=== PATIENT | male | born 2005 | race African-American/Black ===

== ENCOUNTER 2025-06-09 06:38 | Emergency (ER) | payer MEDICAID ==
[~2025-06-09] VITALS: Ht 188 cm; Wt 105.0 kg
[2025-06-09 06:56] VITALS: O2SAT 100
[2025-06-09 08:05] LABS: CLARITY URINE CLOUDY (CLEAR); COLOR URINE YELLOW (YELLOW); GLUCOSE URINE NEGATIVE (NEGATIVE); KETONES URINE 3+ (NEGATIVE); LEUKOCYTE ESTERASE URINE NEGATIVE (NEGATIVE); NITRITE URINE NEGATIVE (NEGATIVE); OCCULT BLOOD URINE NEGATIVE (NEGATIVE); PH URINE >=9.0 (4.5-8.0); PROTEIN URINE 1+ (NEGATIVE); SPECIFIC GRAVITY URINE 1.024 (1.005-1.030); UROBILINOGEN URINE 1.0 E.U./dL (0.2-1.0)
[2025-06-09 08:10] LABS: BASOPHILS % 0.4 % (0.0-2.0); EOSINOPHILS % 0.4 % (0.0-5.0); HEMATOCRIT. 45.8 % (42.0-52.0); HEMOGLOBIN. 15.1 g/dL (14.0-18.0); LYMPHOCYTES % 21.4 % (20.0-50.0); MEAN PLATELET VOLUME 9.8 fl (7.4-10.4); MONOCYTES % 5.6 % (2.0-8.0); NEUTROPHILS % 72.2 % (40.0-76.0); PLATELET 258 x1000/uL (130-400); RED BLOOD CELL COUNT 5.03 mill/uL (4.7-6.1); RED CELL DISTRIBUTION WIDTH 13.1 % (11.6-14.6)
[2025-06-09 08:14] LABS: CREATININE 1.1 mg/dL (0.6-1.3); UREA NITROGEN BLOOD 8 mg/dL (9-23)
[2025-06-09] MEDS: ONDANSETRON 4MG ODT PO ONE (08:27)
[2025-06-09 08:28] LABS: SQUAMOUS EPITHELIAL CELL URINE 3+ /lpf (RARE/1+)
[2025-06-09 08:29] LABS: WBC URINE 0-2 /hpf (0-2)
[2025-06-09 08:30] LABS: BACTERIA URINE 3+; RBC URINE NONE SEEN /hpf (0-2)
[2025-06-09] MEDS ORDERED: MOXI400T31 MT (09:46)
[2025-06-09] MEDS ORDERED: IBUP-2030 MT (09:46)
[2025-06-09] MEDS ORDERED: ONDA-239 PO (09:46)
[2025-06-09 10:03] VITALS: O2SAT 100
[2025-06-09 10:04] VITALS: BP 144/79; PULSE 68; RESP 18; TEMP 36.9
== END 2025-06-09 10:05 | disposition home or self-care (01) ==
LOC: ER 06:38
DX: I88.0 Nonspecific mesenteric lymphadenitis (principal)
CPT/HCPCS: 99284; 74176; 80048; 81003; 85025; 36415; Q0162